=== PATIENT | male | born 1975 | race African-American/Black ===

== ENCOUNTER 2019-07-07 10:06 | Observation (INO) | payer OTHER ==
[2019-07-07] MEDS ORDERED: Morphine 4 MG/ML VIAL ONE (10:39)
[2019-07-07] MEDS ORDERED: CEFAZOLIN 1 GM VIAL ONE (10:39)
[2019-07-07] MEDS ORDERED: Adacel (T-DAP) 0.5 ML SYRINGE ONE (10:39)
--- NOTE | 2019-07-07 10:48 | RAD ---
Exam: XR Foot Rt 3 View STANDARD HISTORY: Right foot injury COMPARISON: None FINDINGS: There is a nondisplaced transverse fracture involving the mid right second metatarsal. There is an os seous density seen just medial to the first tarsometatarsal joint which appears corticated and may represent a more remote injury. The Lisfranc joint is normally aligned. Subcutaneous soft tissue swelling is seen at the dorsal aspect of the foot. IMPRESSION: Nondisplaced fracture right second metatarsal with overlying subcutaneous soft tissue swelling.
[2019-07-07 10:55] LABS: #Basophils 0.1 thou/uL (0.0-0.2); #Eosinphils 0.2 thou/uL (0.0-0.7); #Lymphocytes 1.6 thou/uL (1.20-3.40); #Monocytes 0.4 thou/uL (0.11-0.59); #Neutrophils 7.7 thou/uL (1.40-6.50); %Basophils 0.6 % (0.0-1.0); %Eosinophils 1.6 % (0.0-10.0); %Lymphocytes 16.1 % (21.0-51.0); %Monocytes 4.3 % (0.0-10.0); %Neutrophils 77.4 % (42.0-75.0); Hemoglobin 15.7 g/dL (14.0-18.0); Mean Corpuscular HGB CONC 32.9 g/dL (32.0-36.0); Mean Corpuscular Hemoglobin 28.4 pg (27.0-31.0); Mean Corpuscular Volume 86.2 fL (78.0-98.0); Mean Platelet Volume 8.9 fL (7.4-10.4); Platelet Count 181 thou/uL (130-400); RBC Distribution Width 13.1 % (11.5-14.5); Red Blood Cell (RBC) Count 5.52 mill/uL (4.70-6.10); White Blood Cell (WBC) Count 9.9 thou/uL (4.8-10.8)
[2019-07-07 10:59] LABS: INR-International Normal Ratio 0.9; PTT 27.8 SEC (22.9-36.1); Prothrombin Time 12.3 sec (12.0-14.7)
[2019-07-07 11:22] LABS: ALT (SGPT) 23 U/L (8-55); AST (SGOT) 23 U/L (5-34); Albumin 4.4 g/dL (3.5-5.0); Alkaline Phosphatase 87 U/L (40-110); Anion Gap 18 mmol/L (10-20); BUN (Urea Nitrogen) 12 mg/dL (8.9-20.6); Bilirubin, Total 0.5 mg/dL (0.2-1.2); Calc. Creatinine Clearance 0 mL/min (70-130); Calcium 9.5 mg/dL (7.8-10.44); Carbon Dioxide 22 mmol/L (22-29); Chloride 104 mmol/L (98-107); Estimated GFR-MDRD 80; Globulin 3.8 g/dL (2.4-3.5); Glucose 100 mg/dL (70-105); Potassium 4.1 mmol/L (3.5-5.1); Protein, Total 8.2 g/dL (6.0-8.3); Sodium 140 mmol/L (136-145)
--- NOTE | 2019-07-07 12:00 | RAD ---
PORTABLE CHEST 1 VIEW: Date: 07/07/2019 Time: 1043 hours HISTORY: Cough, chest pain. FINDINGS: The heart size is normal. The lungs are expanded without focal areas of consolidation, pneumothoraces , or pleural effusions. IMPRESSION: No acute process. POS: [facility]
[2019-07-07] MEDS ORDERED: hydrALAZINE 20 MG/ML VIAL SLOW IVP PRN (12:55)
[2019-07-07] MEDS ORDERED: Dextrose 50% Abboject 50 ML SYRINGE SLOW IVP PRN (12:55)
[2019-07-07] MEDS ORDERED: Dextrose 5% in Water 1,000 ML IV PRN (12:55)
[2019-07-07] MEDS ORDERED: Ondansetron PF 4 MG/2 ML Vial IVP PRN (12:55)
[2019-07-07] MEDS ORDERED: Cyclobenzaprine 10 MG TAB PO PRN (13:03)
[2019-07-07] MEDS ORDERED: traMADol HCl 50 MG TAB PO PRN ×2 (13:03)
[2019-07-07] MEDS ORDERED: Acetaminophen 500 MG TAB PO SCH (13:15)
[2019-07-07] MEDS ORDERED: Ibuprofen 800 MG TAB PO SCH (13:15)
--- NOTE | 2019-07-07 14:02 | CON ---
DATE OF CONSULTATION: 07/07/2019 This is Miley Kay PA-C dictating a report for Jesse Wong MD. REQUESTING PHYSICIAN: Aleksandr Phelps DO CONSULTING PHYSICIAN: Jesse Wong MD REASON FOR CONSULTATION: Evaluation for compartment syndrome. 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 He states this happened around 8 or 9 a.m. He was unable to ambulate. He was brought to our facility for further evaluation. Workup in the emergency department showed a superficial laceration of the medial aspect of the foot as well as a nondisplaced second metatarsal fracture. We have been consulted for concerns about possible compartment syndrome. The patient denies any other injuries at bedside. He denies any numbness or tingling into his toes. He does report pain in the foot. States he was wearing steel-toed protective footwear at the time of the injury. PAST MEDICAL HISTORY: The patient denies. PAST SURGICAL HISTORY: The patient denies. ALLERGIES: NO KNOWN DRUG ALLERGIES. SOCIAL HISTORY: The patient is a contract labor, currently in town doing electrical work. He is currently staying at local [facility]. He is from [facility]. He is living alone at this time. Denies any alcohol, tobacco, or illicit drug use. FAMILY HISTORY: Reviewed and noncontributory. REVIEW OF SYSTEMS: Ten-point review of systems conducted and otherwise negative except for stated above. PHYSICAL EXAMINATION: VITAL SIGNS: Blood pressure 111/67, pulse of 59, respiratory rate of 18, O2 saturation 100% on room air, and a temperature of 98.4. GENERAL: The patient is awake and alert. He is not in distress at this time. He is pleasant and cooperative with exam findings today. He answers all questions appropriately. No family currently in the room with the patient. HEENT: Head is normocephalic and atraumatic. NECK: Supple. Trachea midline. Breathing nonlabored. EXTREMITIES: The right lower extremity was evaluated. There is moderate to severe amount of soft tissue swelling on the foot, mainly on the dorsum, some on the plantar aspect. Toes have soft tissue swelling. This is present from the ankle down. He is nontender to palpation over the medial and lateral malleolus. Inspection of the skin shows some early ecchymosis around the toes. There is a laceration along the medial side of the foot, mainly at the base of the first MTP joint. This does appear slightly superficial, but there is a great amount of swelling in this area. His foot is globally tender to palpation. He is able to actively move his toes, mainly the great toe. Sensation intact to all five toes. Capillary refill intact. IMAGING STUDIES: Radiographic evaluation of the right foot shows evidence of a nondisplaced second metatarsal fracture along the midshaft. IMPRESSION: Soft tissue crush injury to the right foot with a nondisplaced second metatarsal fracture, evaluation for compartment syndrome. PLAN: At this time, the patient does not appear to have compartment syndrome. His compartments are soft. He is able to move his toes. He is relatively non-distressed. Given his current living situation in a hotel due to contract labor work at this time, I think it would be beneficial for him to stay with us overnight for observation purposes. We will keep an eye on him throughout the evening. We will keep the leg elevated. We will have Wound Care address his laceration as we cannot get the edges approximated secondary to swelling. All questions have been answered and the patient is amenable to the plan of care. Job ID: [id number]
[2019-07-07] MEDS: Gabapentin 300 MG CAP PO SCH ×2 (15:28→21:13)
[2019-07-07] MEDS: Morphine 4 MG/ML VIAL SLOW IVP PRN ×2 (15:29→22:00)
--- NOTE | 2019-07-07 15:29 | HP ---
TRAUMA SURGEON: Dimitry Elena MD CONSULTING PHYSICIAN: Dr. Wong. HISTORY OF PRESENT ILLNESS: The patient is a 44-year-old male, who presented to the emergency department after 3000-pound bundle of wire fell onto his left foot. The patient was wearing steel-toed protective shoes at the time, but he reported a significant amount of pain. When evaluating his left foot, the anterior surface of his left foot is significantly swollen and there is about a 5 cm laceration to the medial aspect of the foot. The patient reports tingling sensation in his lower extremities, but sensation is intact. The foot is warm and there is good cap refill. His compartments are soft. Bleeding is controlled. REVIEW OF SYSTEMS: All additional 10-point review of systems negative except as indicated above. PAST MEDICAL HISTORY: None. PAST SURGICAL HISTORY: None. SOCIAL HISTORY: He denies tobacco, drug, or alcohol use. He is here working from [place]. He is staying in hotel room through his work. MEDICATIONS: None. ALLERGIES: NO KNOWN DRUG ALLERGIES. PHYSICAL EXAMINATION: VITAL SIGNS: Temperature 98.4, pulse 59, respirations 18, oxygen saturation 100% on room air, blood pressure 111/67. PRIMARY SURVEY: Airway intact. Adequate breath sounds bilaterally. 2+ pulses in bilateral radials, femorals, and DPs. GCS 15. Gross motor and sensation intact. 5 cm laceration to the medial aspect of the right foot with swelling to that foot. No bruising or external bleeding. SECONDARY SURVEY: HEAD: Normocephalic and atraumatic. No gross palpable skull deformities. EYES: Pupils 3-2, equal, round, reactive bilaterally. ENT: No step-offs or deformities. Nontender. C-collar not in place. CHEST: Nontender. No crepitus. No abrasions or ecchymosis. Equal chest movement. HEART: Regular rate and rhythm. No murmurs, gallops, or rubs. GI: Abdomen is soft, nontender, nondistended. EXTREMITIES: 2+ pulses in all extremities. He has some significant swelling to his right foot. Compartments are soft. Foot is warm with good cap refill. Sensation is normal and intact. A 5 cm medial wound is not bleeding. BACK/SPINE: No step-offs or deformity. No signs of trauma. NEUROLOGIC: GCS 15. Gross motor and sensation intact. LABORATORY FINDINGS: White count 9.9, hemoglobin 15.7, hematocrit 47.6, and platelets 181. INR 0.9. Sodium 140, potassium 4.1, chloride 104, bicarb 22, BUN 12, creatinine 1.02, glucose 100, total bilirubin 0.5, AST 23, ALT 23, and alkaline phosphatase 87. CK is 131. Lactic acid 1.4. DIAGNOSTIC FINDINGS: X-ray of the right foot demonstrates nondisplaced fracture of the right second metatarsal with overlying subcutaneous soft tissue swelling. Chest x-ray demonstrates no acute process. ASSESSMENT: 1. Status post crush injury to right foot. 2. Right second metatarsal fracture. 3. 5 cm laceration to the right medial foot, unable to repair due to swelling. 4. Acute traumatic pain secondary to trauma listed above. PLAN: The patient will be admitted to observation. He will have a regular diet and receive normal saline at 120 an hour. Repeat blood work in the morning. Monitor for compartment syndrome. Elevate and ice the injury. Wound Care to evaluate the injury. We will follow up further weightbearing instructions from Orthopedic surgery, q.4 hours neurovascular checks to the right lower extremity. PT/OT to evaluate in the morning. This patient was discussed with Dr. Elena before this dictation. Job ID: [id number]
[2019-07-07] MEDS: Sodium Chloride 0.9% 1,000 ML IV SCH ×2 (15:36→21:39)
[2019-07-07 15:58] VITALS: BMI 31.0
[2019-07-07] MEDS: Acetaminophen 500 MG TAB PO SCH (21:13)
[2019-07-07] MEDS: Senokot S 8.6-50 MG TAB PO SCH (21:14)
--- NOTE | 2019-07-08 00:37 | PRG ---
DATE OF SERVICE: 07/07/2019 SUBJECTIVE: The patient was seen during evening rounds on the surgical floor, sleeping, in noted acute distress. The patient sustained a crush injury to his right foot earlier today. The patient's pain has been controlled. OBJECTIVE: VITAL SIGNS: Stable, afebrile. IMPRESSION: 1. Status post crush injury to right foot. 2. Right second metatarsal fracture, nonoperative. 3. 5 cm laceration to the right medial foot, unable to repair due to swelling. 4. Acute traumatic pain secondary to trauma listed above. PLAN: Continue comfort measures, regular diet, and pain regimen. Continue IV maintenance fluids overnight. We will monitor for compartment syndrome. Continue to keep the leg elevated. PT and OT to evaluate and treat in the morning. Job ID: [id number]
[2019-07-08] MEDS: Acetaminophen 500 MG TAB PO SCH ×2 (04:16→10:07)
[2019-07-08] MEDS: Ibuprofen 800 MG TAB PO SCH ×2 (04:18→08:02)
[2019-07-08] MEDS: Sodium Chloride 0.9% 1,000 ML IV SCH (04:40)
[2019-07-08 05:23] LABS: #Basophils 0.1 thou/uL (0.0-0.2); #Eosinphils 0.4 thou/uL (0.0-0.7); #Lymphocytes 2.5 thou/uL (1.20-3.40); #Monocytes 0.4 thou/uL (0.11-0.59); #Neutrophils 3.1 thou/uL (1.40-6.50); %Basophils 1.1 % (0.0-1.0); %Eosinophils 6.1 % (0.0-10.0); %Lymphocytes 38.6 % (21.0-51.0); %Monocytes 6.2 % (0.0-10.0); Hemoglobin 13.6 g/dL (14.0-18.0); Mean Corpuscular HGB CONC 31.4 g/dL (32.0-36.0); Mean Corpuscular Hemoglobin 27.7 pg (27.0-31.0); Mean Corpuscular Volume 88.2 fL (78.0-98.0); Mean Platelet Volume 9.4 fL (7.4-10.4); Platelet Count 158 thou/uL (130-400); RBC Distribution Width 13.3 % (11.5-14.5); Red Blood Cell (RBC) Count 4.92 mill/uL (4.70-6.10); White Blood Cell (WBC) Count 6.4 thou/uL (4.8-10.8)
[2019-07-08 05:41] LABS: Anion Gap 12 mmol/L (10-20); BUN (Urea Nitrogen) 12 mg/dL (8.9-20.6); CK (CPK) 177 U/L (30-200); Calc. Creatinine Clearance 169 mL/min (70-130); Calcium 8.4 mg/dL (7.8-10.44); Carbon Dioxide 24 mmol/L (22-29); Chloride 106 mmol/L (98-107); Estimated GFR-MDRD Greater than 90; Glucose 101 mg/dL (70-105); Magnesium 2.1 mg/dL (1.6-2.6); Phosphorus 3.5 mg/dL (2.3-4.7); Potassium 3.9 mmol/L (3.5-5.1); Sodium 138 mmol/L (136-145)
[2019-07-08] MEDS: Gabapentin 300 MG CAP PO SCH (08:01)
[2019-07-08] MEDS: Senokot S 8.6-50 MG TAB PO SCH (08:02)
--- NOTE | 2019-07-08 09:23 | PRG ---
DATE OF SERVICE: 07/08/2019 SUBJECTIVE: Mr. Serrano has no complaints today. OBJECTIVE: VITAL SIGNS: He is afebrile. Vital signs are stable. CHEST: Clear. HEART: Regular rate. ABDOMEN: Soft. EXTREMITIES: Examination of the right lower extremity reveals dressings intact. No evidence of ischemia or edema to the extremity. Peripheral pulses intact. ASSESSMENT AND PLAN: Status post traumatic injury to right foot. Ortho plans nonoperative management of the fracture and local wound care. He is going to be discharged today and follow up with out-of-town physician. Job ID: [id number]
[2019-07-08 11:25] VITALS: BP 112/78; TEMP 97.9
--- NOTE | 2019-07-08 16:50 | DIS ---
DATE OF ADMISSION: 07/07/2019 DATE OF DISCHARGE: 07/08/2019 ADMISSION DIAGNOSES: Crush injury to right foot, right second metatarsal fracture, 5-cm laceration to the right medial foot. DISCHARGE DIAGNOSES: Crush injury to right foot, right second metatarsal fracture, 5-cm laceration to the right medial foot. CONSULTING PHYSICIAN: Dr. Wong of Orthopedic Surgery. PROCEDURES: None. HOSPITAL COURSE: The patient is a 44-year-old male, presented to the emergency department after a 3000-pound spool of wire fell onto his foot at work. The patient was wearing steel-toed boot. Upon evaluation, the patient had a significant crush injury to his right foot and he was admitted to the hospital to rule out of compartment syndrome. The patient also had a right second metatarsal fracture and a 5-cm laceration to the right medial foot. Neurovascular and compartment checks were completed overnight. The next day, the patient's pain was more controlled and the swelling had greatly decreased. PT/OT also worked with the patient. At the time of discharge, the patient's pain was well controlled. He was ambulating with a walking shoe and crutches with PT. He was eating without difficulties and voiding without issues. DISCHARGE DISPOSITION: Home. DISCHARGE CONDITION: Satisfactory. PHYSICAL EXAMINATION: VITAL SIGNS: Temperature 97.6, pulse 61, respirations 16, oxygen saturation 98% on room air, and blood pressure 99/66. GENERAL: Well-appearing middle-aged male, lying in bed with no signs of acute distress. PULMONARY: Equal chest rise and fall. Clear breath sounds bilaterally. No signs of acute respiratory distress. CARDIAC: Regular rate and rhythm. GASTROINTESTINAL: Soft, nontender, and nondistended. EXTREMITIES: 2+ pulses in all extremities. Gross motor sensation intact in all extremities. There is some moderate swelling to the right foot, which is greatly improved. Bandage to right lateral foot is clean, dry, and intact. There is no signs of oozing or infection. NEUROLOGIC: GCS is 15. DISCHARGE INSTRUCTIONS: The patient was discharged home. Activity, as tolerated. Weightbearing as tolerated and walking boot as needed. RITO hose as needed. Follow up for wound check in 1 week. Regular diet. DISCHARGE MEDICATIONS: 1. Tylenol. 2. Gabapentin. 3. Ibuprofen. 4. Tramadol. FOLLOWUP APPOINTMENTS: The patient lives about 7 hours away from here and he was told to follow up with an orthopedic surgeon in 7 days. He was provided with his medical records including this of his images. Otherwise, he will be able to follow up with Dr. Wong if needed. No followup needed with [facility]. This is a summary of the patient's hospitalization. For full details, please see his medical record in its entirety. [facility] was accessed and there was no records found of the patient getting monitored medications. He was discharged with a prescription for tramadol. Job ID: [id number]
== END 2019-07-08 12:25 | disposition home or self-care (01) ==
LOC: ERS 10:06 → SURG A 13:03
PROVIDERS: ADMIT Surgery; ATTEND Surgery
DX: S92.321A Displaced fracture of second metatarsal bone, right foot, initial encounter for closed fracture (principal); G89.11 Acute pain due to trauma; W24.0XXA Contact with lifting devices, not elsewhere classified, initial encounter; Y99.0 Civilian activity done for income or pay
CPT/HCPCS: 36415; 71045; 80048; 80053; 82550; 83605; 83735; 84100; 85025; 85610; 85730; 86850; 86900; 86901; 90471; 90715; 94760; 96361; 96365; 96375; 96376; G0378; J0690; J2270